=== PATIENT | male | born 1995 | race Caucasian/White ===

== ENCOUNTER 2023-08-12 16:00 | Outpatient (CLI) | payer OTHER | END 2023-08-12 16:01 | disposition home or self-care (01) | LOC: SLEEPLAB 16:00 | PROVIDERS: ATTEND Family Medicine | DX: G47.33 Obstructive sleep apnea (adult) (pediatric) (principal); R06.83 Snoring; E66.9 Obesity, unspecified; R53.83 Other fatigue | CPT/HCPCS: 95800 ==